=== PATIENT | male | born 1985 | race Caucasian/White ===

== ENCOUNTER 2020-12-17 08:34 | Emergency (ER) | payer OTHER, SELFPAY ==
[2020-12-17 08:47] VITALS: BP 122/72; PULSE 60; RESP 16; TEMP 36.9; O2SAT 98
--- NOTE | 2020-12-17 09:06 | ED.DENTAL ---
HPI - Dental/Oral General Chief complaint: Dental/Oral Stated complaint: Toothache Time Seen by Provider: 12/17/20 09:06 Source: patient and RN notes reviewed Mode of arrival: ambulatory Limitations: no limitations History of Present Illness HPI Narrative: Ajith is a 35-year-old male patient here for [facility] today with complaint of tooth pain. Patient states his filling fell out a little over a year ago and has had no issues issues since this occurred. Patient has a dental appointment scheduled for 2 weeks from today. Patient has been using aspirin and Orajel. Patient states the pain has been occurring for the last 2 weeks getting worse each day. Patient rates his pain 8 out of 10 at the worst. Patient states he can eat and drink however cool liquids increase the pain. MD Complaint: tooth pain Location: Tooth # (1) Related Data Allergies Allergy/AdvReac Type Severity Reaction Status Date / Time No Known Allergies Allergy Verified 12/17/20 09:03 Review of Systems Review of Systems: CONSTITUTIONAL: Denies body aches, fever, chills, or sweats. EYES: Denies visual changes, redness, or discharge. ENT: Denies rhinorrhea, congestion, sore throat, or otalgia, right upper tooth pain and swelling CARDIOVASCULAR: Denies chest pain, palpitations, or edema. RESPIRATORY: Denies cough or dyspnea. GASTROINTESTINAL: Denies abdominal pain, nausea, vomiting, or diarrhea. GENITOURINARY: Denies dysuria or hematuria. SKIN: Denies rash, itching, or wounds. MUSCULOSKELETAL: Denies back pain, joint pain, or myalgia. NEUROLOGIC: Denies headache, numbness, tingling, or weakness. PSYCH: Denies depression or anxiety. All systems reviewed & are unremarkable except as noted in HPI and below PMFSH Comments At time of signature, I have reviewed and agree with nursing past medical, surgical, social and family history unless otherwise noted. Please see nursing chart for further information. There is no relevant family history pertinent to the presenting complaint Exam Narrative: GENERAL: Well-appearing, well-nourished, and in no acute distress. HEAD: Normocephalic, atraumatic. EYES: EOMI. No redness or drainage. Conjunctivae normal. ENT: Mucous membranes pink and moist. Nares clear. No rhinorrhea. Tooth #1 cracked, moderate facial swelling right maxilla NECK: Normal AROM. Supple. No lymphadenopathy. MUSCULOSKELETAL: No bony tenderness. EXTREMITIES: Normal range of motion. No edema. SKIN: Warm, dry, no rash. Capillary refill normal. Normal skin turgor. NEURO: No focal deficits. Alert and oriented x3. Gait steady. PSYCH: Normal affect. No signs of depression or anxiety. Course Vital Signs Vital signs: Vital Signs Temperature 36.9 C 12/17/20 08:47 Pulse Rate 60 12/17/20 08:47 Respiratory Rate 16 12/17/20 08:47 Blood Pressure 122/72 12/17/20 08:47 Pulse Oximetry 98 12/17/20 08:47 Temperature 36.9 C 12/17/20 08:47 Pulse Rate 60 12/17/20 08:47 Respiratory Rate 16 12/17/20 08:47 Blood Pressure 122/72 12/17/20 08:47 Pulse Oximetry 98 12/17/20 08:47 Reviewed MDM - Dental/Oral MDM Narrative Medical decision making narrative: Patient has swelling to the right upper mandible. Filling is missing she right upper tooth #1. Differential Diagnosis Differential diagnosis: Likely gingival abscess, dental caries, toothache and dental abscess Medical Records Attestation: I reviewed the patient's medical records. Critical Care Time Critical Care Time Critical Care Time: No Discharge Plan Discharge Clinical Impression: Toothache Patient Disposition: Home, Self-Care Condition: Stable Instructions: Antibiotic Form, Dental Abscess (ED) Additional Instructions: Follow-up with your dentist as scheduled. Use Orajel per smudger's instructions. May use Motrin or Tylenol for pain. Patient Language: Maltese Prescriptions: New amoxicillin-pot clavulanate 875-125 mg tablet
== END 2020-12-17 09:15 | disposition home or self-care (01) ==
PROVIDERS: Emergency Provider Nurse Practitioner Family
DX: K08.89 Other specified disorders of teeth and supporting structures (principal)
CPT/HCPCS: 99213; G0463